=== PATIENT | male | born 1950 | race Caucasian/White ===

== ENCOUNTER → 2016-07-18 | Day surgery (SDC) | payer MEDICARE ==
[~2016-07-18] VITALS: Ht 177.8 cm; Wt 81.3 kg
[~2016-07-18] MED LIST: ALLO300T2 PO; AMLO10TA2 PO; ATEN50TA PO; CALC0.25 PO; CHLO25TA2 PO; CHLORHEXIDINE GLUCONATE 2 % 1 PACK (2 CLOTHS) TOPICAL PRN; DIPH1TAB36 PO; FURO40TA PO; INSULIN HUMAN REGULAR 1,000 UNITS/10 ML VIAL SQ PRN; KION15SU PO; LACTATED RINGER'S 1000 ML IV PRN; METOPROLOL TARTRATE 25 MG TAB PO PRN; MULT-135 PO; POVIDONE IODINE 5% (ANTISEPSIS KIT) 4 APPLICATIONS EACH NARE PRN; SODI650T PO; SODIUM CHLORID 0.9% 500 ML IV PRN; TAMS0.4C4 PO
--- NOTE | 2016-07-18 06:37 | RADRPT ---
EXAM DATE/TIME: 07/18/2016 06:16 [place] COMPARISON: No previous studies available for comparison. INDICATIONS : Evaluate for pneumonia, pneumothorax, and communicable disease. Pre op for AV fistula. MEDICAL HISTORY : Polycystic kidney disease. SURGICAL HISTORY : None. ENCOUNTER: Initial ACUITY: 1 day PAIN SCORE: 0/10 LOCATION: Bilateral chest FINDINGS: A single view of the chest demonstrates the lungs to be symmetrically aerated without evidence of mas s, infiltrate or effusion. The cardiomediastinal contours are unremarkable. Osseous structures are intact. CONCLUSION: No acute disease. Nas Reilly MD on July 18, 2016 at 6:35 Board Certified Radiologist. This report was verified electronically.
--- NOTE | 2016-07-18 14:48 | EKG ---
Date Performed: 07/18/2016 Time Performed: 06:38:48 PTAGE: 66 years EKG: Sinus rhythm NORMAL ECG NO PREVIOUS TRACING DOCTOR: Shiva Scott Interpretating Date/Time 07/18/2016 14:42:56
== END | disposition home or self-care (01) ==
LOC: HSDC 05:50
PROVIDERS: ATTEND Surgery
DX: Q61.3 Polycystic kidney, unspecified (principal); Z53.09 Procedure and treatment not carried out because of other contraindication; R21 Rash and other nonspecific skin eruption
CPT/HCPCS: 71010; 86850; 86900; 86901; 93005; G0463; J7120; 99211

== ENCOUNTER → 2016-07-26 | Day surgery (SDC) | payer MEDICARE ==
[~2016-07-26] VITALS: Ht 177.8 cm; Wt 79.8 kg
[~2016-07-26] MED LIST changes: +BUPIVACAINE/EPINEPHRINE 0.5% PF 30 ML VIAL ONE; +DO NOT ADM ANY ANTICOAGULANT DRUGS PRN; +GELFOAM SIZE 100 ONE; +HEPARIN SODIUM - IV 10,000 UNITS/10 ML VIAL ONE; +KETAMINE HCL 500 MG/5 ML VIAL IV ONE; +MAGNESIUM SULFATE 1 GM/100 ML IV PRN; +MORPHINE SULFATE 4 MG/ML INJ IV PRN; +NEOSTIGMINE 3 MG/3 ML SYR IV ONE; +ONDANSETRON HCL 4 MG/2 ML VIAL IV PUSH ONE; +ONDANSETRON HCL 4 MG/2 ML VIAL IV PUSH PRN; +PHENYLEPH/NS 1000 MCG/10 ML SYR IV ONE; +POTASSIUM CHLOR 20 MEQ 100 ML x 2 BAGS IV PRN; +POTASSIUM CHLOR 20 MEQ/100 ML x 1 BAG IV PRN; +PROPOFOL 200 MG/20 ML AMP IV ONE; +PROTAMINE SULFATE 50 MG/5 ML VIAL ONE; +SODIUM CHLORIDE 0.9% FLUSH 10 ML FLUSH IV FLUSH PRN; +SODIUM CHLORIDE 0.9% FLUSH 10 ML FLUSH IV FLUSH SCH; +VANCOMYCIN HCL 1000 MG VIAL ONE; +ceFAZolin 2 GM PREMIX 50 ML ONE; +ePHEDrine/NS 25 MG/5 ML SYR IV ONE; +fentaNYL CITRATE 250 MCG/5 ML AMP ONE
[2016-07-26 10:24] VITALS: BP 158/87; PULSE 68; RESP 16; TEMP 98; O2SAT 100
[2016-07-26 19:12] VITALS: BP 131/70; PULSE 57; RESP 18; TEMP 96; O2SAT 99
--- NOTE | 2016-07-26 21:51 | MP ---
cc: DILCIA LEMA DO DATE OF SURGERY 07/26/2016 PREOPERATIVE DIAGNOSIS End-stage renal disease. POSTOPERATIVE DIAGNOSIS End-stage renal disease PROCEDURE Left upper extremity brachiocephalic AV fistula SURGEON Ella Lema DO [employer] HELPER Alfredito Yin. IV FLUIDS 300 mL BLOOD LOSS Minimal URINE OUTPUT Not calculated. COMPLICATIONS None PROCEDURE IN DETAIL The patient's left upper extremity was prepped, draped in sterile fashion after being under general endotracheal anesthesia. I did inject approximately 10 mL of 0.25% Marcaine with epinephrine and I made an incision just above the antecubital fossa that was somewhat curvilinear. I used a scalpel and electrocautery. I dissected down to the level of the brachial artery. I dissected if free of any periadventitial tissue and then encircled it with vessel loops. I then mobilized the cephalic vein and tied it off distally with two medium clips and side branches with 2-0 and 3-0 Vicryl as needed. Once I had mobilized it and divided it, injected it, it did inject appropriately not much more than its nominal diameter of about 3-4 mm, but it did appear to inject. I then did give the patient 3000 units of heparin. I used pediatric profunda clamps proximal and distally under the distal brachial artery to get control. I made an arteriotomy with 11-blade and Leung scissors. I performed an end-to-side anastomosis of 5-0 Prolene on BD1. I used a 6-0 Prolene correction stitch at the end. The patient had a nice thrill in the outflow cephalic vein and a good signals in the palmar arch, radial and ulnar. It should be noted that I used Surgicel to help out with hemostasis and I closed in layers with a 2-0 and a 3-0 Vicryl absorbable suture with a 4-0 Monocryl for the skin. We used Dermabond over the skin and placed the patient in an arm sling. DO NETO Marshall/ /5:09 PM /9:44 PM
== END | disposition home or self-care (01) ==
LOC: HSDC 09:50
PROVIDERS: ATTEND Surgery
DX: I12.0 Hypertensive chronic kidney disease with stage 5 chronic kidney disease or end stage renal disease (principal); N18.6 End stage renal disease
CPT/HCPCS: 01844; 36821; 76937; 86850; 86900; 86901; J0690; J1644; J2370; J2405; J2710; J3010; J3370; J7120; J2720